=== PATIENT | male | born 1980 | race Caucasian/White ===

== ENCOUNTER 2020-08-23 12:18 | Inpatient (IN) | payer MEDICAID, SELFPAY ==
[2020-08-23] VITALS (24 sets, daily range): BP systolic 152–224; BP diastolic 81–137; PULSE 70–127; RESP 14–26; TEMP 36.4–36.7; O2SAT 93–100
--- NOTE | ~2020-08-23 | US_ITS ---
EXAMINATION: US right upper quadrant DATE: 08/23/2020 14:20 INDICATION: Abdominal pain. TECHNIQUE: Multiple grayscale and Doppler ultrasound images of the abdomen were obtained. COMPARISON: None FINDINGS: The pancreas is obscured by bowel gas. There is diffuse hepatic steatosis. There is normal flow in main portal vein. The gallbladder is normal in size and contains a gallstone. No gallbladder wall thickening or sonographic Lucia sign. The common duct is normal and measures 5 mm. IMPRESSION: 1. Cholelithiasis. No evidence of acute cholecystitis. 2. Diffuse hepatic steatosis. Reviewed, dictated and finalized at location A.
--- NOTE | ~2020-08-23 | XR_ITS ---
XR cholangiogram surg 1st inj DATE: 08/25/2020 18:54 INDICATION: Left scapular cholecystectomy TECHNIQUE: Serial cine images of the bile ducts during intraoperative contrast injection of the cysti c duct remnant 10.7 seconds fluoroscopy time [id number] [id number] COMPARISON: None FINDINGS: Normal caliber of the left and right hepatic ducts and common hepatic duct and common bile duct. No stricture or obstruction or intraluminal filling defect. Contrast material flows freely into the duodenum. IMPRESSION: Negative operative cholangiogram Reviewed, dictated and finalized at Location [facility]. Reviewed, dictated and finalized at location A.
--- NOTE | ~2020-08-23 | CT_ITS ---
EXAMINATION: CT abdomen pelvis wo con DATE: 08/23/2020 14:58 INDICATION: Right flank pain. TECHNIQUE: Computed tomography (CT) of the abdomen and pelvis was performed without intravenous contr ast. Automated exposure control and iterative reconstruction technique were employed. The dose-length product was 853.41 mGy-cm. COMPARISON: Ultrasound 08/23/2020 FINDINGS: The visualized portions of the lung bases demonstrate mild atelectasis. No pleural effusion . The heart size is normal. No pericardial effusion. There is diffuse hepatic steatosis. The gallblad sukumar is distended to 12.0 x 3.0 cm. There is a hypodense gallstone in the gallbladder neck. There is f at stranding around the gallbladder. The spleen, pancreas, adrenal glands, and kidneys are normal. Th ere is no urolithiasis. There is diverticulosis of the colon without evidence of diverticulitis. The appendix is normal. There are no pathologically enlarged lymph nodes. There is no free intraperitonea l fluid. There is mild thoracolumbar spondylosis. IMPRESSION: 1. Acute cholecystitis. 2. Diffuse hepatic steatosis. Reviewed, dictated and finalized at location A.
--- NOTE | 2020-08-23 12:25 | ECG_ITS ---
Measurements Intervals [place] Rate: 81 P: 57 SC: 166 QRS: 18 QRSD: 98 T: 171 QT: 389 QTc: 454 Interpretive Statements SINUS RHYTHM ST-T WAVE ABNORMALITY IN ANTEROLATERAL LEADS- CONSIDER ISCHEMIA BASELINE ARTIFACT- I, II, AVR, AVL, AVF, V1-V6 ABNORMAL ECG Electronically Signed On 08-24-2020 8:19:47 CDT by Thomas Lobato D.O.
--- NOTE | 2020-08-23 13:24 | ED.GENADULT ---
HPI - General Adult General Chief complaint: Chest Pain Stated complaint: chest pain Time Seen by Provider: 08/23/20 13:12 History of Present Illness HPI narrative: Patient is a 39-year-old male who presents ER with abdominal pain. Sudden onset 5 hours ago. Sharp and on the upper abdomen. Radiates into his chest. Mild nausea. Has had this intermittently over the last few days. At one point it was associated with eating but he had not yet eaten today. Reports she did drink some alcohol last night. No fevers or chills or sweats. No previous history of gallstones or pancreatitis. Related Data Home Medications Medication Instructions Recorded Confirmed No Home Medications 08/23/20 08/23/20 Allergies Allergy/AdvReac Type Severity Reaction Status Date / Time No Known Allergies Allergy Verified 04/01/19 15:57 Review of Systems Review of Systems: All systems reviewed & are unremarkable except as noted in HPI and below Constitutional: Constitutional: Denies chills, Denies fever(s) and Denies weakness ENT: Denies nasal congestion and Denies sore throat Cardiovascular: Cardiovascular: Denies chest pain, Denies rapid heart rate and Denies radiating jaw, neck or arm pain Respiratory: Respiratory: Denies cough and Denies dyspnea Gastrointestinal: Gastrointestinal: Reports abdominal pain, Denies constipation, Denies diarrhea, Reports nausea and Denies vomiting Musculoskeletal: Musculoskeletal: Denies back pain and Denies muscle cramps PMFSH Past Medical History Medical History (Updated 08/23/20 @ 16:00 by Abelardo Rodríguez MD) Diabetes Hypertension Surgical History Surgical History (Updated 08/23/20 @ 13:26 by Abelardo Rodríguez MD) No history of previous surgery Social History Social History (Updated 08/23/20 @ 13:26 by Abelardo Rodríguez MD) Smoking status: Current every day smoker Alcohol intake: current Substance use type: crack/cocaine Gender identity (if verbalized by the patient): Male Exam Narrative: Exam Narrative: GENERAL: Uncomfortable-appearing, well-nourished, and in mild distress. HEAD: Normocephalic, atraumatic. ENT: Mucous membranes moist. CHEST: Clear to auscultation. No respiratory distress. HEART: Regular rate and rhythm. Normal peripheral pulses. ABDOMEN: Soft, tender palpation in the epigastrium but more so on the right upper quadrant with guarding, nondistended. EXTREMITIES: Normal range of motion. No edema. SKIN: Warm, dry, no rash. NEURO: Alert and oriented x3. Course Course Emergency Course: Patient will be admitted to hospitalist service with general surgery consulting due to patient's elevated blood pressures and elevated blood sugar. Current blood pressure 139/121. He is only had 1 blood pressure in the 220s. He will be given IV hydralazine. He is being given Dilaudid for pain since 8 mg of morphine did not help him. Patient be started on cefotetan 2 g IV twice daily per recommendation of surgery. Reevaluation(s) Reevaluation #1: Discussed with hospitalist service. Admit to IMU for BP control. Date: 08/23/20 Time: 16:14 Vital Signs Vital signs: Vital Signs Temperature 97.5 F L 08/23/20 12:29 Pulse Rate 127 H 08/23/20 12:29 Respiratory Rate 18 08/23/20 12:29 Blood Pressure 177/108 H 08/23/20 12:29 Pulse Oximetry 99 08/23/20 12:29 Temperature 97.5 F L 08/23/20 12:29 Pulse Rate 70 08/23/20 13:46 Respiratory Rate 14 08/23/20 13:46 Blood Pressure 224/132 H 08/23/20 13:46 Pulse Oximetry 93 08/23/20 13:46 Medical Decision Making Vital Signs Vital Signs: Vital Signs Temperature 97.5 F L 08/23/20 12:29 Pulse Rate 127 H 08/23/20 12:29 Respiratory Rate 18 08/23/20 12:29 Blood Pressure 177/108 H 08/23/20 12:29 Pulse Oximetry 99 08/23/20 12:29 Temperature 97.5 F L 08/23/20 12:29 Pulse Rate 70 08/23/20 13:46 Respiratory Rate 14 08/23/20 13:46 Blood Pressure 224/132 H 08/23/20 13:46 Pulse Oximet
[2020-08-23] MEDS: MORPHINE SULFATE (*CRX) 4 MG/ML INJ IV PUSH ×2 (13:31→14:54)
[2020-08-23] MEDS: ONDANSETRON INJ 4 MG/2 ML VIAL IV PUSH (13:31)
[2020-08-23 14:00] LABS: Basophils Absolute Auto 0.1 K/mm3 (0.0-0.1); Basophils Percent Auto 0.4 % (0.2-1.2); Eosinophils Absolute Auto 0.1 K/mm3 (0-0.3); Eosinophils Percent Auto 0.5 % (0-4.4); Hematocrit 51.1 % (42.0-52.0); Hemoglobin 18.5 g/dL (14.0-18.0); Immature Granulocyte Absolute 0.09 K/mm3 (0.00-0.031); Immature Granulocyte Percent A 0.6 % (0-0.5); Lymphocytes Absolute Auto 1.89 K/mm3 (0.9-3.2); Lymphocytes Percent Auto 11.8 % (18.3-44.2); Mean Corpuscular HGB Conc 36.2 g/dl (32-36); Mean Corpuscular Hemoglobin 32.2 pg (26-34); Mean Platelet Volume 10.2 fl (7.4-10.4); Monocytes Absolute Auto 1.2 K/mm3 (0.1-0.6); Monocytes Percent Auto 7.3 % (2.6-8.5); Neutrophils Absolute Auto 12.8 K/mm3 (1.3-6.7); Neutrophils Percent Auto 79.4 % (45.5-73.1); Platelet Count Result 287 k/mm3 (150-375); Red Blood Count 5.74 M/mm3 (4.6-6.20); Red Cell Distribution Width 12.1 % (11.5-14.5); White Blood Count 16.1 K/mm3 (4.5-10.0)
[2020-08-23 14:02] LABS: Alanine Aminotransferase 20 U/L (4-50); Albumin Level 4.6 g/dL (3.5-5.1); Alkaline Phosphatase 115 U/L (38-126); Anion Gap 10 mmol/L (8-16); Aspartate Amino Transferase 18 U/L (17-59); Bilirubin,Total 1.7 mg/dL (0.2-1.3); Blood Urea Nitrogen 8 mg/dL (9-20); Calcium 9.9 mg/dL (8.4-10.2); Carbon Dioxide 30 mmol/L (22-30); Chloride 97 mmol/L (98-107); Estimated CRCL calculation 150 ml/min; Estimated Glomerular Filt Rate > 60; Glucose 236 mg/dL (75-110); Lipase 54 U/L (23-300); Potassium 4.2 mmol/L (3.4-5.0); Sodium 137 mmol/L (137-145)
[2020-08-23 15:09] LABS: Add Urine Microscopic? YES; Appearance Urine Clear (Clear); Bilirubin Urine Negative (Negative); Blood Urine Negative (Negative); Color Urine Yellow (Yellow); Glucose Urine UA 3+ mg/dL (Negative); Ketones Urine 2+ mg/dL (Negative); Leukocyte Esterase Ur Negative LEU/UL (Negative); Mucus Urine Rare /lpf; Nitrate Urine Negative (Negative); Protein Urine 3+ mg/dL (Negative); RBC Urine 0-2 /hpf (0-2); Specific Grav Ur 1.028 (1.001-1.035); WBC Urine 0-3 /hpf
[2020-08-23] MEDS: HYDROmorphone HCL INJ (*CRX) 1 MG/ML SYR IV PUSH ×2 (15:58→21:09)
[2020-08-23] MEDS: hydrALAZINE HCL 20 MG/ML VIAL 10 MG IV PUSH ×3 (16:05→21:07)
[2020-08-23] MEDS: cefoTEtan DISODIUM INJ 2 GM in DEXTROSE 5% IN WATER 50 ML IVPB (16:51)
--- NOTE | 2020-08-23 17:10 | PM.CNGS ---
Assessment and Plan Assessment and plan (1) Cholelithiasis and acute cholecystitis without obstruction: Onset Date: ~08/22/20 Code(s): K80.00 - Calculus of gallbladder with acute cholecystitis without obstruction Status: Acute Assessment and Plan: Patient will be started on antibiotics, will await medicine evaluation in view of his very elevated blood pressure. If possible to get this controled will consider laparoscopic cholecystectomy with possible intraoperative cholangiogram, possible open cholecystectomy tomorrow afternoon. For overnight from the surgical point of view patient can have clear liquids until midnight and then in NPO at midnight. Will repeat all labs the morning including CBC, CMP, lipase, and magnesium. (2) Non-insulin dependent diabetes mellitus: Status: Chronic (3) Uncontrolled hypertension: Onset Date: Unknown Code(s): I10 - Essential (primary) hypertension Status: Acute Assessment and Plan: Patient's blood pressure was very elevated in the emergency room. Dr. Rodríguez has talked with the hospitalist regarding this and they are planning to admit him to IMU to try to get these under control. If this is not under control tomorrow we could probably wait another 24 hours if needed to go ahead with his gallbladder surgery continuing the antibiotics and watching his current situation. History of Present Illness Consult details Consult date: 08/23/20 Reason for consult: abdominal pain Narrative: This patient is a pleasant 39-year-old obese white male who presented to the emergency room after developing acute right upper quadrant pain radiating to the right side of his back starting about midnight last night. Workup in the emergency room shows elevated white count along with stranding around it gallbladder on CT scan but only cholelithiasis on his ultrasound. Patient continues to have right upper quadrant pain even after pain medicine. Also significantly his blood pressure was very elevated in the emergency room and he does have an elevated blood glucose at 236. He was seen in consultation at this time because of his gallbladder disease. Will start antibiotics and if possible consider intervention with laparoscopic cholecystectomy, possible open cholecystectomy tomorrow should his blood pressure and glucose is be able to be controlled overnight. I believe the hospitalist's plan on admitting him to IMU to watch him closely in trying to control these things. Review of Systems Constitutional: Constitutional: Reports as per HPI and Denies headache(s) Eyes: Eyes: Denies loss of vision and Denies eye pain ENT: Reports Normal hearing present, Denies change in voice, Denies dizziness and Denies headache(s) Cardiovascular: Cardiovascular: Denies chest pain and Denies dyspnea Comments: Patient has a history of hypertension but does not remember what blood pressure volodymyr was on in the past and probably has been off of it for least 2-3 months. Respiratory: Respiratory: Denies dyspnea and Denies wheezing Gastrointestinal: Gastrointestinal: Reports abdominal pain ( Mainly in the right upper quadrant.) Comments: He states that he has had on and off abdominal pain for the last 2 weeks mainly in the right upper quadrant. Musculoskeletal: Musculoskeletal: Denies back pain and Denies arthralgias Neurologic: Reports Normal hearing present, Denies dizziness, Denies headache(s), Denies loss of vision and Denies memory loss Psychiatric: Psychiatric: Denies memory loss and Denies panic attacks Endocrine: Endocrine: Reports no additional endocrine complaints Comments: Known history of diabetes mellitus was on metformin but has been off of that for least 1 or 2 months due to financial issues and lack of insurance. Hematologic/Lymphatic: Hematologic/Lymphatic: Reports no additional hematologic/lymphatic complaints Allergic/Immunologic: Allergic/Immunologic: Denies wheezing
--- NOTE | 2020-08-23 19:37 | PM.IMHP ---
H&P: HPI History of Present Illness Date/Time: 08/23/20 19:37 Chief Complaint: Midsternal chest pain since last night+ Narrative: This is an obese Diabetic male with known history of HTN who has not been on any medications recently as he has not had any medical insurance and presented to the hospital with a complaint of midsternal pressure like chest pain that awoke him from sleep last night and has been ongoing since then. Associated symptoms include diaphoresis and epigastric/RUQ abd pain. The patient reports having similar episodes of chest pain throughout this past week although it resolved on its own at that time. He is known to smoke more than 1 ppd and reports using cocaine over the weekend. He has family history of early heart disease as his father had an UT during his 40s. The patient is also known to have been drinking alcohol last night. He denies any known history of heart disease or pancreatitis. In the ER today the patient was found to have severely elevated blood pressure and complaining of ongoing 8/10 chest pain. RUQ ultrasound revealed Cholelithiasis. No evidence of acute cholecystitis and diffuse hepatic steatosis. General surgery was consulted and has already evaluated the patient. On further questioning the patient denies any fevers, chills, coughing, nausea, vomiting, dysuria, hematuria, diarrhea, rectal bleeding, or LE swelling. Review of Systems Review of Systems: All systems reviewed & are unremarkable except as noted in HPI and below PMFSH Past Medical History Medical History Diabetes Hypertension Non-insulin dependent diabetes mellitus Surgical History Surgical History No history of previous surgery Family History Family History Father Heart disease Social History Social History Smoking packs per day: 1 Smoking cigarettes per day: 20.0 Years smoked: 22 Smoking pack-years: 22.00 Smoking status: Current every day smoker Tobacco type: cigarettes Alcohol intake: current Drinks per week: 14 Substance use type: marijuana and crack/cocaine Gender identity (if verbalized by the patient): Male Spiritual care concerns: No Meds Home Medications and Allergies Home Medications Medication Instructions Recorded Confirmed Type No Home Medications 08/23/20 08/23/20 History Allergies Allergy/AdvReac Type Severity Reaction Status Date / Time No Known Allergies Allergy Verified 04/01/19 15:57 Vital Signs Vital Signs - 24 hr 08/23/20 12:29 08/23/20 13:12 08/23/20 13:27 Temperature 36.4 C L Pulse Rate 127 H 72 78 Respiratory Rate 18 14 22 H Blood Pressure 177/108 H 221/101 H 224/125 H Pulse Oximetry 99 100 100 08/23/20 13:30 08/23/20 13:32 08/23/20 13:46 Temperature Pulse Rate 78 80 70 Respiratory Rate 26 H 24 H 14 Blood Pressure 211/137 H 211/137 H 224/132 H Pulse Oximetry 100 100 93 08/23/20 14:40 08/23/20 14:47 08/23/20 15:59 Temperature Pulse Rate Respiratory Rate Blood Pressure 184/93 H 196/115 H 179/121 H Pulse Oximetry 100 99 99 08/23/20 16:01 08/23/20 16:16 08/23/20 16:31 Temperature Pulse Rate Respiratory Rate Blood Pressure 214/123 H 210/111 H 222/132 H Pulse Oximetry 95 97 95 08/23/20 16:50 08/23/20 17:02 08/23/20 17:16 Temperature Pulse Rate 75 86 85 Respiratory Rate 22 H 19 Blood Pressure 194/111 H 179/93 H 184/98 H Pulse Oximetry 100 94 96 08/23/20 17:31 08/23/20 17:47 08/23/20 18:17 Temperature Pulse Rate 84 86 Respiratory Rate 20 26 H Blood Pressure 195/116 H 196/117 H 205/114 H Pulse Oximetry 96 99 94 08/23/20 18:31 08/23/20 18:46 Temperature Pulse Rate Respiratory Rate Blood Pressure 189/112 H 199/113 H Pulse Oximetry 96 Exam Const: General: c
--- NOTE | 2020-08-23 19:41 | ECG_ITS ---
Measurements Intervals [place] Rate: 100 P: 67 IN: 163 QRS: 47 QRSD: 100 T: 103 QT: 361 QTc: 468 Interpretive Statements SINUS TACHYCARDIA POSSIBLE LEFT ATRIAL ENLARGEMENT DELAYED PRECORDIAL R/S TRANSITION T WAVE ABNORMALITY IN LATERAL LEADS- CONSIDER ISCHEMIA ABNORMAL ECG Electronically Signed On 08-24-2020 8:24:16 CDT by Thomas Lobato D.O.
--- NOTE | 2020-08-23 20:46 | ADMGEN ---
This patient, Milton Sosa, was admitted to IMU Room 232-01. Patient/family oriented to hospital policies and general routines including ID bracelet, bed and alarms, visiting hours, pain management, procedures, bathroom and other care routines, personal items, smoking policy, room service/diet, and visiting hours. Information on how to activate the Rapid Response Team has been discussed. Patient/Family are encouraged to report perceived risks to care and to ask questions if they do not understand what they are told or what they should do.
[2020-08-23] MEDS: NITROGLYCERIN SL 0.4 MG TABLET SUBLINGUAL (21:07)
[2020-08-23] MEDS: ENOXAPARIN 40 MG/0.4 ML SYRINGE SUB-Q (21:07)
[2020-08-23] MEDS: SODIUM CHLORIDE 0.9% IV 1,000 ML 125 ML IV CONT (21:08)
[2020-08-23 22:21] LABS: Troponin I 0.014 ng/mL (0.000-0.034)
[2020-08-23 23:42] LABS: Glucose Point of Care 222 (65-105)
[2020-08-24] VITALS (19 sets, daily range): BP systolic 138–174; BP diastolic 68–96; PULSE 71–119; RESP 18–32; TEMP 35.8–36.8; O2SAT 97–99
--- NOTE | 2020-08-24 | ECHO_ITS ---
Patient Info Name: Milton Sosa Age: 39 years : 1980 Gender: Male Ht: 71 in Wt: 215 lbs BSA: 2.23 m2 HR: 80 bpm BP: 170 / 96 mmHg Heart Rhythm: Sinus Rhythm Technical Quality: Good Exam Date: 08/24/2020 12:22 PM Exam Location: [facility] Pulmonary Exam Room: 232 Patient Status: Inpatient Admit Date: 08/24/2020 Staff Ordering Physician: Milton Hart MD Sample Collector: Daysi Muñoz RDCS Attending Provider: Antoine Fregoso MD Referring Physician: Hailey HAY; Exam Type: CA echo doppler color flow Study Info Indications - cocaine use chest pain troponin elevation Complete two-dimensional, color flow and Doppler transthoracic echocardiogram is performed with contrast to opacify the left ventricle and to improve the deliniation of the left ventricle endocardial borders. Summary 1. The left ventricle is borderline enlarged. There is moderate concentric hypertrophy. The left ventricular function is at the lower end of normal but no segmental wall motion abnormalities are seen. Grade 2 diastolic dysfunction is present. The ejection fraction visually is 50-55%. 2. Left atrial chamber dimension is moderately enlarged. 3. No pulmonary hypertension, estimated pulmonary arterial systolic pressure is 27 mmHg. 4. No significant valve disease. 5. Normal sinus rhythm. Left Ventricle Left ventricular chamber dimension is normal. Left ventricular systolic function is normal, estimated at 50-55%. There is moderately increased left ventricular wall thickness. Left ventricular septal wall motion is normal. The left ventricular diastolic function is grade II diastolic dysfunction. Right Ventricle Right ventricular chamber dimension is normal. Right ventricular systolic function is normal. Left Atria Left atrial chamber dimension is moderately enlarged. Right Atria Right atrial chamber dimension is normal. Aortic Valve The aortic valve is trileaflet. There is no aortic valve sclerosis. There is no aortic valve stenosis. There is no aortic valve regurgitation. Pulmonic Valve The pulmonic valve is normal. There is no pulmonic valve stenosis. There is no pulmonic regurgitation. Mitral Valve The mitral valve has normal leaflets. There is no mitral valve stenosis. There is no mitral valve regurgitation. Tricuspid Valve The tricuspid valve leaflets are normal. There is no significant tricuspid valve stenosis. There is trace tricuspid valve regurgitation. No pulmonary hypertension, estimated pulmonary arterial systolic pressure is 27 mmHg. Pericardium/Pleural The pericardium appears normal. There is no pericardial effusion. Inferior Vena Cava Normal inferior vena cava with >50% collapse upon inspiration consistent with Empty right atrial pressure, 10 mmHg. Aorta The aortic root size at the sinus of Valsalva is normal. The prox ascending aorta size is normal. Left Ventricular Outflow Tract Name Value Normal LVOT 2D LVOT Diameter 2.1 cm LVOT Doppler LVOT Peak Gradient 5 mmHg LVOT Mean Gradient 3 mmHg
[2020-08-24 01:37] LABS: Troponin I 0.031 ng/mL (0.000-0.034)
[2020-08-24 04:41] LABS: Basophils Absolute Auto 0.1 K/mm3 (0.0-0.1); Basophils Percent Auto 0.2 % (0.2-1.2); Hematocrit 50.9 % (42.0-52.0); Hemoglobin 17.6 g/dL (14.0-18.0); Immature Granulocyte Absolute 0.12 K/mm3 (0.00-0.031); Immature Granulocyte Percent A 0.6 % (0-0.5); Lymphocytes Absolute Auto 1.16 K/mm3 (0.9-3.2); Lymphocytes Percent Auto 5.5 % (18.3-44.2); Mean Corpuscular HGB Conc 34.6 g/dl (32-36); Mean Corpuscular Hemoglobin 31.8 pg (26-34); Mean Corpuscular Volume 91.9 fl (80-100); Mean Platelet Volume 10.2 fl (7.4-10.4); Monocytes Absolute Auto 1.7 K/mm3 (0.1-0.6); Monocytes Percent Auto 8.1 % (2.6-8.5); Neutrophils Percent Auto 85.6 % (45.5-73.1); Platelet Count Result 287 k/mm3 (150-375); Red Blood Count 5.54 M/mm3 (4.6-6.20); Red Cell Distribution Width 12.4 % (11.5-14.5); White Blood Count 21.1 K/mm3 (4.5-10.0)
[2020-08-24 05:01] LABS: Anion Gap 11 mmol/L (8-16); Bilirubin,Total 1.2 mg/dL (0.2-1.3); Blood Urea Nitrogen 9 mg/dL (9-20); Calcium 9.1 mg/dL (8.4-10.2); Carbon Dioxide 24 mmol/L (22-30); Chloride 101 mmol/L (98-107); Cholesterol 220 mg/dL (0-200); Estimated CRCL calculation 147 ml/min; Estimated Glomerular Filt Rate > 60; Glucose 219 mg/dL (75-110); HDL Direct 56 mg/dL; Magnesium 1.6 mg/dL (1.6-2.3); Potassium 3.7 mmol/L (3.4-5.0); Sodium 136 mmol/L (137-145); Triglycerides 207 mg/dL (<150)
[2020-08-24] MEDS: SODIUM CHLORIDE 0.9% IV 1,000 ML 125 ML IV CONT (05:09)
[2020-08-24] MEDS: cefoTEtan DISODIUM INJ 2 GM in DEXTROSE 5% IN WATER 50 ML IVPB ×2 (05:10→17:28)
[2020-08-24] MEDS: HYDROmorphone HCL INJ (*CRX) 1 MG/ML SYR IV PUSH ×4 (05:10→20:18)
[2020-08-24 05:11] LABS: Troponin I 0.044 ng/mL (0.000-0.034)
[2020-08-24 05:12] LABS: LDL Cholesterol Direct 119 mg/dL
[2020-08-24 08:50] LABS: Troponin I 0.042 ng/mL (0.000-0.034)
--- NOTE | 2020-08-24 09:07 | PM.CNCAR ---
Assessment and Plan Additional Plan This is a 39-year-old man without previous history of cardiac problems presents with abdominal pain felt to have cholecystitis. He also uses cocaine has untreated hypertension and diabetes because of noncompliance with seeing physicians for treatment of these problems. He is being seen in consultation because of his pain I do not believe is indicative of an acute coronary syndrome. He is hypertensive and tachycardic. Troponin level is barely out of normal range I do not consider this to be evidence of an acute coronary syndrome. My recommendations at this time will include starting antihypertensive medication I am going to start with a beta-jaja and SULEMAN-inhibitor. I will order an echocardiogram to ensure that there are not any ischemic wall motion abnormalities. Depending on his response to hypertension medication and these echocardiographic findings we will determine if he is a safe candidate for noncardiac surgery. Since his gallbladder is not an urgent matter I would not proceed with that today. Milton Hart MD [facility] History of Present Illness History of Present Illness Consult date/time: 08/24/20 09:07 Consult reason: hypertension and pre-op evaluation Reason For Visit: acute cholecystitis, uncontrolled hypertension Narrative: This is a 39-year-old man that I am asked to see at the request of the hospitalist because of chest pain. Patient in my opinion is not really reporting symptoms of chest pain. He states that for about a week or 2 he has been having episodes of epigastric abdominal pain that radiates down into the mid abdomen and sometimes into the midportion of his back. His symptoms at times are mild but at times are quite severe this symptom seems to wax and wane and lasts for typically for 5 hours at a time. Yesterday he had an episode that was rather severe so he chose to come to the emergency room to be evaluated. In the emergency department he was markedly hypertensive with systolic blood pressures in the vicinity of 220 mmHg. He had a couple of EKGs done which demonstrated some nonspecific T-wave abnormalities. He had a series of 3 troponin levels done the 1st 2 which were normal this 3rd 1 was 0.04. The patient this morning is relatively comfortable he was laying in bed in the left lateral decubitus position resting fairly comfortably upon awakening he does not offer any significant complaints. He was felt on admission to probably have cholecystitis a surgical consult was performed last evening who does believe the patient probably has cholecystitis and has recommended cholecystectomy when he is medically stable. The need for cholecystectomy is not felt to be urgent. The patient has some orders on the chart for p.r.n. hydralazine for hypertension no other antihypertensives have been ordered. Systolic blood pressure is better but still in the vicinity of 170-180 mmHg. He is in a sinus tachycardia with heart rates in the 100-115 range for the most part. He does have a history of hypertension and diabetes states he takes no medication for either of these and does not seek any medical attention in general. He has not seen a physician in probably a number of years from what I can tell. He has not had any major surgeries or operations performed. He does not work currently he was laid off at the start of the [place] virus pandemic. Patient smokes cigarettes daily and also abuses crack cocaine. He states he last used cocaine last weekend. No drug screen was done on admission. He does not have any known history of cardiac problems he states his father had a myocardial infarction in his 50s and he is alive in his late 60s. Review of Systems Constitutional: Constitutional: Reports no additional constitutional complaints Eyes: Eyes: Reports no additional eye complaints ENT: Reports system reviewed and no additional complaints, except as documented Cardiovascular: Cardiovascular: Reports as
[2020-08-24] MEDS: METOPROLOL TARTRATE 50 MG TAB PO ×2 (10:07→20:17)
[2020-08-24] MEDS: lisinopriL 10 MG TABLET PO (10:07)
[2020-08-24] MEDS: MICONAZOLE NITRATE 2% CREAM 30 GM TUBE 1 APPLIC TOPICAL ×2 (10:08→20:18)
[2020-08-24 12:17] LABS: Glucose Point of Care 225 (65-105)
--- NOTE | 2020-08-24 12:28 | PM.IMPN ---
Progress Note: A&P Assessment and Plan (1) Cholelithiasis and acute cholecystitis without obstruction: Onset Date: ~08/22/20 Code(s): K80.00 - Calculus of gallbladder with acute cholecystitis without obstruction Status: Acute Assessment and Plan: Surgery has been consulted Planning for cholecystectomy Appreciate surgery note (2) Cocaine abuse: Code(s): F14.10 - Cocaine abuse, uncomplicated Status: Acute Assessment and Plan: Supportive care Encouraged cocaine use cessation (3) Chest pain: Qualifiers: Chest pain type: unspecified Qualified Code(s): R07.9 - Chest pain, unspecified Code(s): R07.9 - Chest pain, unspecified Status: Acute Assessment and Plan: As per cardiology does not seem to be chest pain Pending echocardiogram Appreciate cardiology note (4) Uncontrolled hypertension: Onset Date: Unknown Code(s): I10 - Essential (primary) hypertension Status: Acute Assessment and Plan: Patient is started on metoprolol and lisinopril Continue to monitor (5) Non-insulin dependent diabetes mellitus: Status: Chronic Assessment and Plan: Accu-Cheks AC and HS Insulin sliding scale as needed (6) Tobacco dependence: Code(s): F17.200 - Nicotine dependence, unspecified, uncomplicated Status: Chronic Assessment and Plan: Encourage tobacco use cessation Subjective Date/time seen: 08/24/20 12:28 I still have pain Review of Systems Review of Systems: Narrative: Patient presented with epigastric to emergency room Constitutional: Comments: No fevers no rigors no chills Cardiovascular: Comments: No chest pain elevated blood pressure Respiratory: Comments: No shortness of breath Gastrointestinal: Comments: Epigastric pain Musculoskeletal: Comments: No muscle or joint pain Integumentary/Breasts: Comments: No rashes Neurologic: Comments: No sensorimotor deficit Exam Narrative: Exam Narrative: Patient is laying in bed Const: General: comfortable, no acute distress, well developed, alert and awake Nutritional Appearance: average body habitus Orientation/consciousness: patient oriented x3 HENMT: Head: normal to inspection, normocephalic and atraumatic Ears: hearing grossly normal bilaterally Face and sinus: normal facial exam Eyes: General: appearance normal, both eyes and all related structures Pupils: Equal, round and reactive pupils present EOM: EOMs intact bilaterally Neck: Neck: full ROM, no lymphadenopathy and no JVD Thyroid: thyroid normal Lymphatic: no lymphadenopathy noted Resp: Effort & Inspection: normal respiratory effort and able to speak in complete sentences Auscultation: clear to auscultation bilaterally Cardio: Jugular venous distension: no JVD Rate: regular rate Rhythm: regular rhythm Heart sounds: S1 normal heart sound present and S2 normal heart sound present GI: GI Palp: Yes Soft to palpation and Yes No hepatosplenomegaly present : General: Yes deferred Skin: Rashes: no rashes Wounds: no wounds Neuro: General: patient oriented x3 and CN's II-XI intact bilaterally Cranial nerves: Yes CN's II-XII intact bilaterally and Yes Equal, round and reactive pupils present Cognition (Neuro): normal cognition Speech: normal speech Gait exam (Neuro): Normal gait present Motor exam (neuro): 5/5 motor strength present throughout Extrem: General: normal to inspection, full ROM, no joint enlargement and no pedal edema Objective Data Vital Signs Vital Signs: Vital Signs - 24 hr 08/23/20 12:29 08/23/20 13:12 08/23/20 13:27 Temperature 97.5 F L Pulse Rate 127 H 72 78 Respiratory Rate 18 14 22 H Blood Pressure 177/108 H 221/101 H 224/125 H Pulse Oximetry 99 100 100 08/23/20 13:30 08/23/20 13:32 08/23/20 13:46 Temperature Pulse Rate 78 80 70 Respiratory Rate 26 H 24 H 14 Blood Pressure 211/137 H 211/137 H 224/132 H Pulse Oximetry 100 100 93
[2020-08-24] MEDS: INSULIN ASPART (*BKC) 100 UNITS/ML SUB-Q ×3 (12:31→23:13)
--- NOTE | 2020-08-24 13:42 | PM.PNGS ---
Progress Note: A&P Assessment and Plan (1) Cholelithiasis and acute cholecystitis without obstruction: Onset Date: ~08/22/20 Code(s): K80.00 - Calculus of gallbladder with acute cholecystitis without obstruction Status: Acute Assessment and Plan: Surgery has been postponed until tomorrow so for allowing so for further cardiac workup. Will await cardiac clearance to proceed. Tentatively planning patient to be NPO at midnight tonight and possibly have laparoscopic cholecystectomy possible intraoperative cholangiogram and possible open cholecystectomy tomorrow at 2:00 p.m.. (2) Uncontrolled hypertension: Onset Date: Unknown Code(s): I10 - Essential (primary) hypertension Status: Acute Assessment and Plan: As per Medicine and Cardiology Services. This is improving. (3) Tobacco dependence: Code(s): F17.200 - Nicotine dependence, unspecified, uncomplicated Status: Chronic Assessment and Plan: Encouraged patient to stop smoking. (4) Cocaine abuse: Code(s): F14.10 - Cocaine abuse, uncomplicated Status: Acute (5) Leukocytosis: Qualifiers: Leukocytosis type: unspecified Qualified Code(s): D72.829 - Elevated white blood cell count, unspecified Code(s): D72.829 - Elevated white blood cell count, unspecified Status: Acute Assessment and Plan: WBC count slightly up today even though patient on antibiotics. (6) Non-insulin dependent diabetes mellitus: Status: Chronic Subjective Subjective Date/Time Seen: 08/24/20 13:42 Patient is sitting up in bed when I saw him this morning. He is feeling okay. No nausea. Still some upper abdominal pain no bowel movement since 2 days ago. Review of Systems Constitutional: Constitutional: Reports no additional constitutional complaints ENT: Reports other (Mucous Membranes moist.) Cardiovascular: Cardiovascular: Denies dyspnea Comments: Blood pressure somewhat better controlled. Patient is still having some mild anterior chest pain. Cardiology visit/consult planned for today. Respiratory: Respiratory: Denies pain on inspiration and Denies dyspnea Musculoskeletal: Musculoskeletal: Reports other (No calf swelling or edema) Integumentary/Breasts: Skin/Breast: Reports system reviewed and no additional complaints, except as docu Exam Const: General: cooperative, no acute distress, alert and awake Orientation/consciousness: patient oriented x3 HENMT: Mouth: Yes moist mucous membranes Neck: Neck: normal visual inspection Chest: Chest palpation & inspection: normal inspection of the chest Resp: Effort & Inspection: normal respiratory effort Auscultation: clear to auscultation bilaterally Cardio: Jugular venous distension: no JVD Rate: regular rate Rhythm: regular rhythm GI: GI Palp: Yes Soft to palpation and Yes Tenderness to palpation present (GI) (Mild epigastric) Auscultation: normal bowel sounds Rectal Exam: deferred Neuro: General: patient oriented x3 and moves all extremities Speech: normal speech Extrem: General: normal exam except as noted Psych: Mental Status: mental status grossly normal Speech and movement: Normal speech and movement present Affect: normal affect Thought content: Yes Normal thought content present Objective Data Vital Signs Vital Signs: Vital Signs - 24 hr 08/23/20 13:46 08/23/20 14:40 08/23/20 14:47 Temperature Pulse Rate 70 Respiratory Rate 14 Blood Pressure 224/132 H 184/93 H 196/115 H Pulse Oximetry 93 100 99 08/23/20 15:59 08/23/20 16:01 08/23/20 16:16 Temperature Pulse Rate Respiratory Rate Blood Pressure 179/121 H 214/123 H 210/111 H Pulse Oximetry 99 95 97 08/23/20 16:31 08/23/20 16:50 08/23/20 17:02 Temperature Pulse Rate 75 86 Respiratory Rate 22 H Blood Pressure 222/132 H 194/111 H 179/93 H Pulse Oximetry 95 100 94 08/23/20 17:16 08/23/20 17:31 08/23/20 17:47
[2020-08-24 17:09] LABS: Glucose Point of Care 233 (65-105)
[2020-08-24 19:55] LABS: Glucose Point of Care 376 (65-105)
[2020-08-24] MEDS: ENOXAPARIN 40 MG/0.4 ML SYRINGE SUB-Q (20:17)
[2020-08-25] VITALS (19 sets, daily range): BP systolic 140–191; BP diastolic 77–110; PULSE 72–106; RESP 12–24; TEMP 36.2–37.7; O2SAT 92–99
[2020-08-25] MEDS: HYDROmorphone HCL INJ (*CRX) 1 MG/ML SYR IV PUSH ×5 (00:15→16:08)
[2020-08-25] MEDS: SODIUM CHLORIDE 0.9% IV 1,000 ML 125 ML IV CONT ×2 (04:17→14:00)
[2020-08-25 04:48] LABS: Basophils Absolute Auto 0.1 K/mm3 (0.0-0.1); Basophils Percent Auto 0.3 % (0.2-1.2); Eosinophils Absolute Auto 0.2 K/mm3 (0-0.3); Eosinophils Percent Auto 1.1 % (0-4.4); Hematocrit 43.8 % (42.0-52.0); Hemoglobin 15.2 g/dL (14.0-18.0); Immature Granulocyte Percent A 0.5 % (0-0.5); Lymphocytes Absolute Auto 1.86 K/mm3 (0.9-3.2); Lymphocytes Percent Auto 9.9 % (18.3-44.2); Mean Corpuscular HGB Conc 34.7 g/dl (32-36); Mean Corpuscular Hemoglobin 31.8 pg (26-34); Mean Corpuscular Volume 91.6 fl (80-100); Mean Platelet Volume 10.1 fl (7.4-10.4); Monocytes Absolute Auto 1.7 K/mm3 (0.1-0.6); Neutrophils Absolute Auto 14.8 K/mm3 (1.3-6.7); Neutrophils Percent Auto 79.2 % (45.5-73.1); Platelet Count Result 238 k/mm3 (150-375); Red Blood Count 4.78 M/mm3 (4.6-6.20); Red Cell Distribution Width 12.3 % (11.5-14.5); White Blood Count 18.7 K/mm3 (4.5-10.0)
[2020-08-25 05:07] LABS: Alanine Aminotransferase 44 U/L (4-50); Albumin Level 3.5 g/dL (3.5-5.1); Alkaline Phosphatase 109 U/L (38-126); Anion Gap 6 mmol/L (8-16); Aspartate Amino Transferase 77 U/L (17-59); Bilirubin,Total 1.4 mg/dL (0.2-1.3); Blood Urea Nitrogen 9 mg/dL (9-20); Calcium 8.6 mg/dL (8.4-10.2); Carbon Dioxide 33 mmol/L (22-30); Chloride 95 mmol/L (98-107); Estimated CRCL calculation 127 ml/min; Estimated Glomerular Filt Rate > 60; Glucose 162 mg/dL (75-110); Lipase 36 U/L (23-300); Potassium 3.8 mmol/L (3.4-5.0); Sodium 134 mmol/L (137-145)
[2020-08-25] MEDS: cefoTEtan DISODIUM INJ 2 GM in DEXTROSE 5% IN WATER 50 ML IVPB ×2 (06:03→17:15)
[2020-08-25] MEDS: METOPROLOL TARTRATE 50 MG TAB PO ×2 (08:22→23:33)
[2020-08-25] MEDS: MICONAZOLE NITRATE 2% CREAM 30 GM TUBE 1 APPLIC TOPICAL (08:23)
--- NOTE | 2020-08-25 11:22 | PM.PNCARD ---
Progress Note: A&P Assessment and Plan (1) Encounter for pre-operative cardiovascular clearance: Code(s): Z01.810 - Encounter for preprocedural cardiovascular examination Status: Acute Assessment and Plan: In regards to the preoperative cardiovascular clearance before cholecystectomy, the echocardiogram looked unremarkable. Patient does not have chest pain today. May proceed for the planned surgery for the cholecystectomy. (2) Uncontrolled hypertension: Onset Date: Unknown Code(s): I10 - Essential (primary) hypertension Status: Acute Assessment and Plan: Blood pressure is better controlled after adding metoprolol and lisinopril. Most likely these blood pressure medicines need to be adjusted postoperatively. Subjective Date/time seen: 08/25/20 11:22 Date of service .He still have epigastric and right upper quadrant pain. no Chest pain .blood pressure remains high but Better controlled Review of Systems Cardiovascular: Cardiovascular: Denies chest pain and Denies dyspnea Gastrointestinal: Gastrointestinal: Reports abdominal pain Exam Const: General: comfortable and no acute distress Other: Well-developed well-nourished overweight white male multiple tattoos no distress. Patient is polite and cooperative HENMT: Mouth: Yes moist mucous membranes Eyes: Sclera: sclerae normal Pupils: Equal, round and reactive pupils present Neck: Neck: supple and no JVD Thyroid: thyroid normal Other: Carotid pulses are bounding bilaterally there are no bruits audible Resp: Effort & Inspection: normal respiratory effort Auscultation: clear to auscultation bilaterally Cardio: Rate: regular rate and tachycardic Rhythm: regular rhythm Other: PMI not displaced he has a grade 2/6 systolic ejection murmur that does not seem to radiate from the left sternal border GI: Auscultation: normal bowel sounds Skin: General skin exam: normal color Neuro: Cranial nerves: Yes Equal, round and reactive pupils present Cognition (Neuro): normal cognition Extrem: General: normal to inspection Other: No edema brisk distal pulses Objective Data Vital Signs Vital Signs: Vital Signs - 24 hr 08/24/20 12:00 08/24/20 12:27 08/24/20 14:00 Temperature 36.8 C Pulse Rate 82 84 77 Respiratory Rate 24 H Blood Pressure 152/87 H Pulse Oximetry 97 08/24/20 16:00 08/24/20 17:16 08/24/20 18:00 Temperature 35.8 C L Pulse Rate 71 77 85 Respiratory Rate 22 H Blood Pressure 148/72 H Pulse Oximetry 98 08/24/20 19:32 08/24/20 20:00 08/24/20 20:17 Temperature 35.9 C L Pulse Rate 89 98 100 Respiratory Rate 20 20 Blood Pressure 138/68 Pulse Oximetry 99 99 08/24/20 22:00 08/24/20 23:40 08/25/20 01:51 Temperature 36.2 C L Pulse Rate 88 80 86 Respiratory Rate 22 H Blood Pressure 150/91 H Pulse Oximetry 98 08/25/20 04:00 08/25/20 06:00 08/25/20 08:00 Temperature 36.7 C 37.2 C Pulse Rate 89 86 94 Respiratory Rate 18 16 Blood Pressure 144/77 H 158/97 H Pulse Oximetry 97 97 08/25/20 08:22 Temperature Pulse Rate 100 Respiratory Rate Blood Pressure Pulse Oximetry Intake/Output Intake/Output: Intake & Output 08/22/20 08/23/20 08/24/20 08/25/20 23:59 23:59 23:59 23:59 Intake Total 150 4550 850 Output Total 1950 900 Balance 150 2600 -50 Meds/Results Medications: Active Medications Generic Name Dose Route Start Last Admin Trade Name Freq PRN Reason Stop Dose Admin Dextrose 12.5 gm 08/23/20 19:43 Dextrose 50% 25 Gm/50 Ml Syringe IV PUSH PRN PRN Hypoglycemia Protocol Enoxaparin Sodium 40 mg 08/23/20 21:00 08/24/20 20:17 Enoxaparin 40 Mg/0.4 Ml Syringe SUB-Q 40 mg Q24H ANCELMO Administration Glucagon 1 mg 08/23/20 19:43 Glucagon For Inj 1 Mg Vial IM PRN PRN Hypoglycemia Protocol Hydralazine HCl 10 mg 08/23/20 18:24 08/23/20 21:07 Hydralazine Hcl 20 Mg/Ml Vial IV PUSH 1
[2020-08-25 11:56] LABS: Glucose Point of Care 200 (65-105)
--- NOTE | 2020-08-25 12:27 | WPDHPUPDATE1 ---
History and Physical Update Update Date/Time: 08/25/20 12:27 History and Physical has been reviewed, including an updated exam of the patient. There are changes in the patient's condition. His blood pressure and diabetes are much better controlled after consultation with our hospitalist. He has cardiac clearance after echocardiogram done and reviewed by our gastroenterology physician here at [facility]. Risks, benefits, and alternatives Of a laparoscopic cholecystectomy with possible intraoperative cholangiogram, possible open cholecystectomy have been discussed and questions answered. patient also received patient information brochure regarding this from our office.Patient agrees to proceed with procedure.
--- NOTE | 2020-08-25 15:17 | PM.IMPN ---
Progress Note: A&P Assessment and Plan (1) Cholelithiasis and acute cholecystitis without obstruction: Onset Date: ~08/22/20 Code(s): K80.00 - Calculus of gallbladder with acute cholecystitis without obstruction Status: Acute Assessment and Plan: at the time of my visit patient was status NPO for planned cholecystectomy (2) Uncontrolled hypertension: Onset Date: Unknown Code(s): I10 - Essential (primary) hypertension Status: Acute Assessment and Plan: likely secondary to the use of cocaine started metoprolol and lisinopril continue to monitor (3) Hyperbilirubinemia: Code(s): E80.6 - Other disorders of bilirubin metabolism Status: Acute Assessment and Plan: likely secondary to cholestatic picture due to cholelithiasis with cholecystitis will monitor (4) Leukocytosis: Qualifiers: Leukocytosis type: unspecified Qualified Code(s): D72.829 - Elevated white blood cell count, unspecified Code(s): D72.829 - Elevated white blood cell count, unspecified Status: Acute Assessment and Plan: likely secondary to cholecystitis currently on antibiotics will monitor (5) Chest pain: Qualifiers: Chest pain type: unspecified Qualified Code(s): R07.9 - Chest pain, unspecified Code(s): R07.9 - Chest pain, unspecified Status: Acute Assessment and Plan: patient uses cocaine blood pressure was extremely high on presentation to emergency room now better controlled supportive care (6) Tobacco dependence: Code(s): F17.200 - Nicotine dependence, unspecified, uncomplicated Status: Chronic Assessment and Plan: nicotine patch as needed (7) Cocaine abuse: Code(s): F14.10 - Cocaine abuse, uncomplicated Status: Acute Assessment and Plan: encouraged cocaine use cessation (8) Non-insulin dependent diabetes mellitus: Status: Chronic Assessment and Plan: continue to monitor 1800 calorie diet Accu-Cheks AC and HS insulin scale as needed Subjective Date/time seen: 08/25/20 15:17 patient states that he feels fine Review of Systems Review of Systems: Narrative: patient complains of right upper quadrant pain Exam Narrative: Exam Narrative: laying in bed Const: General: cooperative, comfortable, no acute distress, well developed, alert and awake Nutritional Appearance: average body habitus Orientation/consciousness: patient oriented x3 HENMT: Head: normal to inspection, normocephalic and atraumatic Ears: hearing grossly normal bilaterally Face and sinus: normal facial exam Eyes: General: appearance normal, both eyes and all related structures Pupils: Equal, round and reactive pupils present EOM: EOMs intact bilaterally Neck: Neck: full ROM, no lymphadenopathy and no JVD Thyroid: thyroid normal Lymphatic: no lymphadenopathy noted Resp: Effort & Inspection: normal respiratory effort and able to speak in complete sentences Auscultation: clear to auscultation bilaterally Cardio: Jugular venous distension: no JVD Rate: regular rate Rhythm: regular rhythm Heart sounds: S1 normal heart sound present and S2 normal heart sound present GI: GI Palp: Yes Soft to palpation and Yes No hepatosplenomegaly present : General: Yes deferred Skin: Rashes: no rashes Wounds: no wounds Neuro: General: patient oriented x3 and CN's II-XI intact bilaterally Cranial nerves: Yes CN's II-XII intact bilaterally and Yes Equal, round and reactive pupils present Cognition (Neuro): normal cognition Speech: normal speech Gait exam (Neuro): Normal gait present Motor exam (neuro): 5/5 motor strength present throughout Extrem: General: normal to inspection, full ROM, no joint enlargement and no pedal edema Objective Data Vital Signs Vital Signs: Vital Signs - 24 hr 08/24/20 16:00 08/24/20 17:16 08/24/20 18:00 Temperature 96.5 F L Pulse Rate
[2020-08-25] MEDS: LACTATED RINGERS 1,000 ML 30 ML IV CONT ×4 (16:30→20:33)
--- NOTE | 2020-08-25 16:42 | WPDANESEPP ---
Anes - Eval Pre Procedure Procedure: Operation Date: 08/25/20 14:00 Proposed Procedures p Laparoscopic Cholecystectomy - Manav Mims MD Date/Time: 08/25/20 16:42 Pre Op Diagnosis: acute cholecystitis, uncontrolled hypertension Patient Data Age: 39 Gender: M Height: 1.8 m Weight: 97.7 kg Last Vital Signs Temp 36.6 C 08/25/20 12:31 Pulse 97 08/25/20 12:31 Resp 18 08/25/20 12:31 BP 144/88 H 08/25/20 12:31 Pulse Ox 94 08/25/20 12:31 Allergies Allergy/AdvReac Type Severity Reaction Status Date / Time No Known Allergies Allergy Verified 04/01/19 15:57 Home Medications Medication Instructions Recorded Confirmed Type No Home Medications 08/23/20 08/23/20 History Laboratory Tests 08/24/20 08/24/20 08/24/20 16:22 17:04 19:51 WBC RBC Hgb Hct MCV MCH MCHC RDW Plt Count MPV Immature Gran % (Auto) Neut % (Auto) Lymph % (Auto) Edgar % (Auto) Eos % (Auto) Baso % (Auto) Lymph # (Auto) Edgar # (Auto) Eos # (Auto) Baso # (Auto) Abs Immat Gran (auto) Absolute Neuts (auto) Absolute Nucleated RBC Nucleated RBC % Sodium Potassium Chloride Carbon Dioxide Anion Gap BUN Creatinine Estim Creat Clear Calc Estimated GFR Glucose POC Capillary Glucose 233 mg/dl H mg/dl 376 mg/dl H mg/dl (65-105) (65-105) Calcium Total Bilirubin AST ALT Alkaline Phosphatase Total Protein Albumin Lipase Blood Type B Positive Antibody Screen Negative 08/25/20 08/25/20 08/25/20 04:30 04:30 11:17 WBC 18.7 K/mm3 H K/mm3 (4.5-10.0) RBC 4.78 M/mm3 M/mm3 (4.6-6.20) Hgb 15.2 g/dL g/dL (14.0-18.0) Hct 43.8 % % (42.0-52.0) MCV 91.6 fl fl (80-100) MCH 31.8 pg pg (26-34) MCHC 34.7 g/dl g/dl (32-36) RDW 12.3 % % (11.5-14.5) Plt Count 238 k/mm3 k/mm3 (150-375) MPV 10.1 fl fl (7.4-10.4) Immature Gran % (Auto) 0.5 % % (0-0.5) Neut % (Auto) 79.2 % H % (45.5-73.1) Lymph % (Auto) 9.9 % L % (18.3-44.2) Edgar % (Auto) 9.0 % H % (2.6-8.5) Eos % (Auto) 1.1 % % (0-4.4) Baso % (Auto) 0.3 % % (0.2-1.2) Lymph # (Auto) 1.86 K/mm3 K/mm3 (0.9-3.2) Edgar # (Auto) 1.7 K/mm3 H K/mm3 (0.1-0.6) Eos # (Auto) 0.2 K/mm3 K/mm3 (0-0.3) Baso # (Auto) 0.1 K/mm3 K/mm3 (0.0-0.1) Abs Immat Gran (auto) 0.10 K/mm3 H K/mm3 (0.00-0.031) Absolute Neuts (auto) 14.8 K/mm3 H K/mm3 (1.3-6.7) Absolute Nucleated RBC 0.0 K/mm3 K/mm3 (0.0-0.012) Nucleated RBC % 0.0 % % (0.0-0.2) Sodium 134 mmol/L L mmol/L (137-145) Potassium 3.8 mmol/L mmol/L (3.4-5.0) Chloride 95 mmol/L L mmol/L (98-107) Carbon Dioxide 33 mmol/L H mmol/L (22-30) Anion Gap 6 mmol/L L mmol/L (8-16) BUN 9 mg/dL mg/dL (9-20) Creatinine 0.70 mg/dL mg/dL (0.7-1.3) Estim Creat Clear Calc 127 ml/min ml/min Estimated GFR > 60 (59 - ) Glucose 162 mg/dL H mg/dL (75-110) POC Capillary Glucose 200 mg/dl H mg/dl (65-105) Calcium 8.6 mg/dL mg/dL (8.4-10.2) Total Bilirubin 1.4 mg/dL H mg/dL (0.2-1.3) AST 77 U/L H U/L (17-59) ALT 44 U/L U/L (4-50) Alkaline Phosphatase 109 U/L U/L (38-126) Total Protein
--- NOTE | 2020-08-25 16:48 | P.PNAN_ITS ---
Anes - Eval Final PreProcedure Day of Procedure 08/25/20 16:48 Patient weight: obese Heart: regular rate and rhythm Lungs: clear to auscultation Airway: Mallampati scale class II Neurological: alert and oriented Last oral intake: >/= 8 hours ASA classification: III Emergent: yes Anesthetic plan: proceed Anesthesia type and monitoring: general ETT and standard monitoring Informed Consent: The patient's anesthetic plan and its attendant risks and b enefits were discussed with the patient/family/POA. Questions were solicited and answers provided to the satisfaction of the patient/family/POA.
--- NOTE | 2020-08-25 16:56 | WPDANESEFPP ---
Anes - Eval Final PreProcedure Day of Procedure 08/25/20 16:56 Patient weight: obese Heart: regular rate and rhythm Lungs: clear to auscultation and normal air movement Airway: Mallampati scale class II Neurological: alert and oriented Last oral intake: >/= 8 hours ASA classification: III Emergent: no Anesthetic plan: proceed Anesthesia type and monitoring: general ETT and standard monitoring Other findings: Cardiac clearance today - echo shows no evidence of ischemia Informed Consent: The patient's anesthetic plan and its attendant risks and benefits were discussed with the patient/family/POA. Questions were solicited and answers provided to the satisfaction of the patient/family/POA.
[2020-08-25] MEDS: BUPIVACAINE/EPINEPHRINE 0.5% 30 ML VIAL INFILTRATE (17:39)
--- NOTE | 2020-08-25 20:13 | PM.PROC ---
Procedure Note - Detailed Date of procedure: 08/25/20 Pre-op diagnosis: acute cholecystitis, uncontrolled hypertension Acute cholecystitis with cholelithiasis without obstruction Post-op diagnosis: same Procedure performed: Laparoscopic cholecystectomy with intraoperative cholangiogram. Description of procedure: Procedure Details: Patient was seen preoperatively in the holding area and risks, benefits and alternatives confirmed. Patient was taken to the operating room and general anesthesia was induced. A time out was then preformed with the surgery team confirming patient and site of surgery. The abdomen was prepped and draped in the usual sterile fashion. Incision was made just below the umbilicus. Two stay sutures of O- Vicryl were used to elevate the mid-line fascia beneath the umbilicus and a small incision was made under direct vision. The peritoneum was entered. The 12 mm Resendez cannula was introduced under direct vision. First under low flow and then under high flow the abdomen was insufflated with carbon dioxide never exceeding a pressure of 14. Three trocars were then introduced under direct vision. The following trocars were introduced under direct vision: a 12 mm in the epigastrium and two 5 mm trocars along the right costal margin. TheGB was very inflammed. the Ometum had completly coverdthe GB and I had to gentely dissect it ooof the under side of the GB. I then used laparoscopic kittners and the L-hook cautery to dissect the tissues in the area of the triangle of Calot. The gall bladder was grasped and the cystic duct and artery were dissected free and clipped with an 5 mm endo-clip accounts payable professional. A small hole was made in the cystic duct with endoshears and a cholagio-cath introduced. A cholangiogram was obtained revealing free flow into the cystic duct, common bile duct, common hepatic, right and left hepatic ducts with free flow into the duodenum with no filling defects in the intra nor extrahepatic biliary tree and no dilation. The catheter was removed and the cystic duct was clipped with a 5 mm endoclip-accounts payable professional. The cystic duct was then transected. The cystic artery was also transected at this point. The gall bladder was removed using electrocautery and then removed using an endobag via the umbilical incision. I did have to enlarge the incision at the umbilicus using Julian scissors in order to get this thick, stone containing GB out of the abdomen I then used the Livan-Valerio cone the pass a # 1 Vicryl suture to close the fascia at the epigastric 12 mm port site. I also used 2 figure of 8 #1 Vicryl sutures and one sigle throw #1 Vicryl to close the midlinefascia elow the umbilical incision site that I had to enlarge to get the GB out. The two 5 mm trocars were removed visualizing hemostasis and the remaining gas evacuated. The large trocar site at the umbilicus was closed with the above noted sutures and an 0 vicryl figure of 8 suture. The 2 stay sutures mentioned above on either side of the fascia were also tied together to help approximate this midline fascia. Further local anesthetic was placed into each incision for postop pain control. The skin incisions were closed with a subcuticular of 4-0 Monocryl. Surgical glue then was applied to all the incisions. Patient tolerated the procedure well was taken to the recovery room in good condition. Implants: none Anesthesia: ABE Surgeon: Manav Mims MD Risk Assessor: Greyson CONNELL, OR assistant account executive Estimated blood loss (mL): 75 Drains: No Packing: No Pathology: yes (The gallbladder . 2. bile from the GB for gram stain and C & S.) Complications: No immediate complications Condition: stable Disposition: PACU Findings: A very enlarged thick walled inflamed GB.
[2020-08-25] MEDS: fentaNYL CITRATE INJ (*CRX) 100 MCG/2 ML VIAL 25 MCG IV PUSH ×4 (20:22→20:50)
[2020-08-25 21:03] LABS: Glucose Point of Care 257 (65-105)
[2020-08-25] MEDS: INSULIN ASPART (*BKC) 100 UNITS/ML SUB-Q (21:40)
[2020-08-25] MEDS: LACTATED RINGERS 1,000 ML 100 ML IV CONT (23:29)
[2020-08-25] MEDS: ENOXAPARIN 40 MG/0.4 ML SYRINGE SUB-Q (23:33)
[2020-08-25] MEDS: SENNA/DOCUSATE SODIUM TABLET 2 TAB PO (23:34)
[2020-08-25] MEDS: MORPHINE SULFATE (*CRX) 4 MG/ML INJ IV PUSH (23:41)
[2020-08-25 23:57] LABS: Glucose Point of Care 299 (65-105)
[2020-08-26] VITALS (7 sets, daily range): BP systolic 136–149; BP diastolic 84–89; PULSE 70–95; RESP 20; TEMP 36.5–37; O2SAT 94–96
[2020-08-26] MEDS: MICONAZOLE NITRATE 2% CREAM 30 GM TUBE 1 APPLIC TOPICAL
[2020-08-26] MEDS: HYDROcodone/acetaminophen (*CRX) 7.5-325 MG TABLET 1 TAB PO ×2 (01:40→09:39)
[2020-08-26] MEDS: LORazepam INJ (*CRX) 2 MG/ML VIAL 1 MG IV PUSH (03:20)
[2020-08-26] MEDS: MORPHINE SULFATE (*CRX) 4 MG/ML INJ IV PUSH (03:42)
--- NOTE | 2020-08-26 05:08 | PC.NURSE ---
Refused Ice and SCD Dr Danielson made aware.
[2020-08-26 05:36] LABS: Hematocrit 43.4 % (42.0-52.0); Hemoglobin 14.6 g/dL (14.0-18.0); Mean Corpuscular HGB Conc 33.6 g/dl (32-36); Mean Corpuscular Hemoglobin 31.7 pg (26-34); Mean Corpuscular Volume 94.1 fl (80-100); Platelet Count Result 272 k/mm3 (150-375); Red Blood Count 4.61 M/mm3 (4.6-6.20); Red Cell Distribution Width 12.3 % (11.5-14.5); White Blood Count 14.4 K/mm3 (4.5-10.0)
[2020-08-26] MEDS: cefoTEtan DISODIUM INJ 2 GM in DEXTROSE 5% IN WATER 50 ML IVPB (05:49)
[2020-08-26 05:50] LABS: Alanine Aminotransferase 63 U/L (4-50); Albumin Level 3.4 g/dL (3.5-5.1); Alkaline Phosphatase 116 U/L (38-126); Anion Gap 5 mmol/L (8-16); Aspartate Amino Transferase 64 U/L (17-59); Bilirubin,Total 0.6 mg/dL (0.2-1.3); Blood Urea Nitrogen 13 mg/dL (9-20); Calcium 8.8 mg/dL (8.4-10.2); Carbon Dioxide 31 mmol/L (22-30); Chloride 99 mmol/L (98-107); Estimated CRCL calculation 146 ml/min; Estimated Glomerular Filt Rate > 60; Glucose 297 mg/dL (75-110); Sodium 135 mmol/L (137-145)
--- NOTE | 2020-08-26 08:45 | PM.PNGS ---
Progress Note: A&P Assessment and Plan (1) Cholelithiasis and acute cholecystitis without obstruction: Onset Date: ~08/22/20 Code(s): K80.00 - Calculus of gallbladder with acute cholecystitis without obstruction Status: Acute Assessment and Plan: Patient had successful laparoscopic cholecystectomy with IOC last evening. He has received 1 more dose of antibiotic after this period in view of severe infection and pending cultures from the bile I would recommend him having Levaquin 750 mg once a day for 3-4 days upon discharge. If patient tolerates a low-fat carbohydrate controlled diet this morning for breakfast would be okay to discharge from surgical point of view. (2) Hyperbilirubinemia: Onset Date: Unknown Code(s): E80.6 - Other disorders of bilirubin metabolism Status: Acute Assessment and Plan: Total bilirubin normal today. (3) Leukocytosis: Onset Date: Unknown Qualifiers: Leukocytosis type: unspecified Qualified Code(s): D72.829 - Elevated white blood cell count, unspecified Code(s): D72.829 - Elevated white blood cell count, unspecified Status: Acute Assessment and Plan: Appropriately slightly elevated today after surgery. (4) Uncontrolled hypertension: Onset Date: Unknown Code(s): I10 - Essential (primary) hypertension Status: Acute Assessment and Plan: Better controlled for Rx by the Medicine and Cardiology. Patient may not have meds at home so will need arrangements through case management to be sure he gets his prescriptions and continues his meds for this plus his diabetes. Additional Plan Patient may need help from case management to confirm his newly applied for health insurance. Subjective Subjective Date/Time Seen: 08/26/20 08:45 Post Op day: 1 (Status post laparoscopic cholecystectomy with IOC.) Patient reports: other (Somewhat agitated during the night.) Interval history: Patient is sleeping when I entered the room at 8:30 a.m. nurse reports patient has not ordered breakfast yet. Apparently did tolerate some diet last night. I stopped back in at about 9:30 a.m.. Patient is sitting up and once T breakfast. States he has abdominal pain mostly at his umbilicus. Otherwise pain is improved. He is interested in going home today. He understands he needs good treatment for his hypertension and diabetes. Case management is planning on helping him get signed up for insurance and be able to get his prescriptions filled for these things. Review of Systems Constitutional: Constitutional: Reports no additional constitutional complaints ENT: Reports other (Mucous Membranes moist.) Cardiovascular: Cardiovascular: Denies dyspnea Respiratory: Respiratory: Denies pain on inspiration and Denies dyspnea Musculoskeletal: Musculoskeletal: Reports other (No calf swelling or edema) Integumentary/Breasts: Skin/Breast: Reports system reviewed and no additional complaints, except as docu Exam Const: General: cooperative, no acute distress, alert, awake and anxious Orientation/consciousness: patient oriented x3 HENMT: Mouth: Yes moist mucous membranes Eyes: Other: No scleral icterus Neck: Neck: normal visual inspection Chest: Chest palpation & inspection: normal inspection of the chest Resp: Effort & Inspection: normal respiratory effort Auscultation: clear to auscultation bilaterally Cardio: Jugular venous distension: no JVD Rate: regular rate Rhythm: regular rhythm Other: Recorded blood pressures improved. GI: Inspection: normal to inspection and incision (Clean and dry with surgical glue in place) Auscultation: normal bowel sounds Rectal Exam: deferred Neuro: General: patient oriented x3 and moves all extremities Speech: normal speech Extrem: General: normal exam except as noted Other: Complains of some tingling in the fingertips bilateral. Psych: Mental Status: mental status grossly normal
[2020-08-26] MEDS: METOPROLOL TARTRATE 50 MG TAB PO (09:46)
[2020-08-26] MEDS: lisinopriL 10 MG TABLET PO (09:46)
[2020-08-26 10:00] LABS: Glucose Point of Care 276 (65-105)
[2020-08-26] MEDS: INSULIN ASPART (*BKC) 100 UNITS/ML SUB-Q (10:00)
--- NOTE | 2020-08-26 11:17 | PM.PNCARD ---
Progress Note: A&P Additional Plan 39-year-old man with: Long history of untreated hypertension doing very well with the initiation of treatment with metoprolol and lisinopril. Blood pressure today is favorable he is postop day 1. Following laparoscopic cholecystectomy. Plans are for discharge today which is fine with me. As there is no other apparent cardiac issue we will not plan on following this gentleman in our office as such he needs to become established with a PCP for hypertension and primary care. Milton Hart MD [facility] Subjective Date/time seen: Date of service: 08/26/20 11:17 Interval history: 39-year-old man with: Acute cholecystitis status post laparoscopic cholecystectomy today is postop day 1. Seems to be doing well. Patient with significant untreated hypertension prior to admission because of noncompliance with medication and also because of illicit drug use with cocaine. He is doing well on the combination of metoprolol and lisinopril and from my perspective appears to be stable for discharge. Discussion with the patient and in the room regarding the need for medical compliance and follow-up with PCP after discharge. He needs to become established with a primary care physician. Exam Const: General: comfortable and no acute distress HENMT: Mouth: Yes moist mucous membranes Eyes: Sclera: sclerae normal Pupils: Equal, round and reactive pupils present Neck: Neck: supple and no JVD Resp: Effort & Inspection: normal respiratory effort Auscultation: clear to auscultation bilaterally Cardio: Rate: regular rate Rhythm: regular rhythm GI: GI Palp: Yes Soft to palpation Auscultation: normal bowel sounds Skin: General skin exam: normal color Neuro: Cognition (Neuro): normal cognition Extrem: General: normal to inspection Objective Data Vital Signs Vital Signs: Vital Signs - 24 hr 08/25/20 12:00 08/25/20 12:31 08/25/20 16:30 Temperature 36.4 C 36.6 C 37.7 C H Pulse Rate 85 97 95 Respiratory Rate 17 18 12 Blood Pressure 146/92 H 144/88 H 152/98 H Pulse Oximetry 95 94 95 08/25/20 19:58 08/25/20 20:15 08/25/20 20:30 Temperature 36.2 C L Pulse Rate 106 H 100 102 H Respiratory Rate 18 20 24 H Blood Pressure 175/110 H 191/101 H 164/96 H Pulse Oximetry 96 97 98 08/25/20 20:45 08/25/20 21:00 08/25/20 21:15 Temperature Pulse Rate 106 H 102 H 103 H Respiratory Rate 24 H 20 20 Blood Pressure 169/98 H 155/95 H 157/90 H Pulse Oximetry 92 94 92 08/25/20 22:05 08/25/20 22:20 08/25/20 22:50 Temperature 36.8 C 36.9 C 36.7 C Pulse Rate 93 96 93 Respiratory Rate 20 20 20 Blood Pressure 145/87 H 155/81 H 158/81 H Pulse Oximetry 99 94 97 08/25/20 23:29 08/25/20 23:33 08/26/20 00:00 Temperature 36.3 C L Pulse Rate 78 72 87 Respiratory Rate 20 Blood Pressure 140/80 Pulse Oximetry 98 08/26/20 03:29 08/26/20 04:00 08/26/20 08:00 Temperature 36.5 C Pulse Rate 82 87 95 Respiratory Rate 20 Blood Pressure 149/84 H Pulse Oximetry 94 08/26/20 09:46 08/26/20 10:00 08/26/20 10:05 Temperature 37.0 C Pulse Rate 86 70 Respiratory Rate 20 Blood Pressure 136/89 Pulse Oximetry 96 96 Intake/Output Intake/Output: Intake & Output 08/23/20 08/24/20 08/25/20 08/26/20 23:59 23:59 23:59 23:59 Intake Total 150 4550 2300 2830 Output Total 1950 1200 800 Balance 150 2600 1100 2030 Meds/Results Medications: Active Medications Generic Name Dose Route Start Last Admin Trade Name Joshuaq PRN Reason Stop Dose Admin Acetaminophen 500 mg 08/25/20 21:44 Acetaminophen 500 Mg Tablet PO Q6H PRN Mild Pain (1-3) or Fever Hydrocodone Bitart/Acetaminophen 1 tab 08/25/20 21:44 Hydrocodone/Acetaminophen (*Crx) 5-325 Mg Tablet PO Q6H PRN Pain Rated 4-6 Hydrocodone Bitart/Acetaminophen 1 tab 08/25/20 21:44 08/26/20 09:39 Hydrocodone/Acetaminophen (*Crx) 7.5-325 Mg Tablet PO 1 tab Q4H PRN Administration Pain
--- NOTE | 2020-09-07 15:42 | PM.DS ---
DS: Admitting Diagnosis Admitting Diagnosis Admitting Diagnosis: (1) Chest pain: Qualifiers: Chest pain type: unspecified Qualified Code(s): R07.9 - Chest pain, unspecified Code(s): R07.9 - Chest pain, unspecified Status: Acute Assessment and Plan: The patient has been placed in observation status. NPO. Telemetry. Check troponin which hasn't been done yet. Check another EKG now. Nitroglycerin PRN for chest pain. Check lipid panel in am. Cardiology consultation in am. (2) Uncontrolled hypertension: Onset Date: Unknown Code(s): I10 - Essential (primary) hypertension Status: Acute Assessment and Plan: Acute uncontrolled HTN may be secondary to ongoing chest pain and untreated HTN. Continue PRN IV antihypertensives overnight. Monitor blood pressure. (3) Cholelithiasis and acute cholecystitis without obstruction: Onset Date: ~08/22/20 Code(s): K80.00 - Calculus of gallbladder with acute cholecystitis without obstruction Status: Acute Assessment and Plan: Continue IV antibiotics started in ER. Continue general surgery recommendations. (4) Non-insulin dependent diabetes mellitus: Status: Chronic Assessment and Plan: Accuchecks, SSI Coverage, hypoglycemic protocol. (5) Leukocytosis: Qualifiers: Leukocytosis type: unspecified Qualified Code(s): D72.829 - Elevated white blood cell count, unspecified Code(s): D72.829 - Elevated white blood cell count, unspecified Status: Acute Assessment and Plan: appears to be secondary to acute cholecystitis. Monitor CBCd. (6) Hyperbilirubinemia: Code(s): E80.6 - Other disorders of bilirubin metabolism Status: Acute Assessment and Plan: Check fractioned and total bilirubin in am. Likely secondary to cholecystitis. (7) Nonadherence to medical treatment: Code(s): Z91.19 - Patient's noncompliance with other medical treatment and regimen Status: Chronic Assessment and Plan: I counseled the patient on the importance of following up with his doctor for treatement of his chronic medical conditions. (8) Cocaine abuse: Code(s): F14.10 - Cocaine abuse, uncomplicated Status: Acute Assessment and Plan: I counseled the patient on cocaine abuse and cessation. (9) Tobacco dependence: Code(s): F17.200 - Nicotine dependence, unspecified, uncomplicated Status: Chronic Assessment and Plan: I counseled the patient on tobacco cessation for 4 minutes. He verbalized his understanding and agreement of same. Additional Plan Date of service was 08/23/2020 at 07:15 pm. DS: Discharge Diagnosis Discharge Diagnosis (1) Cholelithiasis and acute cholecystitis without obstruction: Onset Date: ~08/22/20 Code(s): K80.00 - Calculus of gallbladder with acute cholecystitis without obstruction Status: Acute Assessment and Plan: at the time of my visit patient was status NPO for planned cholecystectomy (2) Uncontrolled hypertension: Onset Date: Unknown Code(s): I10 - Essential (primary) hypertension Status: Acute Assessment and Plan: likely secondary to the use of cocaine started metoprolol and lisinopril continue to monitor (3) Hyperbilirubinemia: Onset Date: Unknown Code(s): E80.6 - Other disorders of bilirubin metabolism Status: Acute Assessment and Plan: likely secondary to cholestatic picture due to cholelithiasis with cholecystitis will monitor (4) Leukocytosis: Onset Date: Unknown Qualifiers: Leukocytosis type: unspecified Qualified Code(s): D72.829 - Elevated white blood cell count, unspecified Code(s): D72.829 - Elevated white blood cell count, unspecified Status: Acute Assessment and Plan: likely secondary to cholecystitis currently on antibiotics will monitor (5) Chest pain: Qualifiers: Chest
== END 2020-08-26 11:35 | disposition home or self-care (01) | DRG 263 ==
LOC: ANHED 18:57 → ANHIMU 19:21 → ANH2MED 08-26 08:50 → ANHIMU 08-30 12:39
PROVIDERS: Family Medicine; Internal Medicine; Surgery; Admitting Provider Internal Medicine; Emergency Provider Emergency Medicine; Visit Provider Internal Medicine
PROC: 0FT44ZZ Resection of Gallbladder, Percutaneous Endoscopic Approach (ICD-10-PCS; CPT 47562; principal; 2020-08-25 14:00)
DX: K80.00 Calculus of gallbladder with acute cholecystitis without obstruction; E80.6 Other disorders of bilirubin metabolism; I10 Essential (primary) hypertension; F17.210 Nicotine dependence, cigarettes, uncomplicated; E11.9 Type 2 diabetes mellitus without complications; F14.10 Cocaine abuse, uncomplicated; Z91.19 Patient's noncompliance with other medical treatment and regimen
CPT/HCPCS: 36415; 74176; 74300; 76705; 80048; 80053; 80061; 81001; 82247; 82948; 83690; 83735; 84484; 85025; 85027; 86850; 86900; 86901; 87070; 87075; 87205; 88304; 93005; 93306; 96361; 96365; 96367; 96372; 96375; 96376; 99285; A9270; G0378; G0379; J0131; J0330; J0360; J1100; J1170; J1200; J1650; J1815; J2060; J2250; J2270; J2405; J2704; J2710; J3010; J7030; J7120; Q9966